=== PATIENT | male | born 1975 | race Caucasian/White ===

== ENCOUNTER 2017-05-15 08:51 | Emergency (ER) | payer OTHER ==
[~2017-05-15] VITALS: Ht 170.2 cm; Wt 90.7 kg
[2017-05-15 08:56] VITALS: Ht 170.2 cm; Wt 90.7 kg
[2017-05-15 10:48] VITALS: BP 128/78
== END 2017-05-15 10:49 | disposition home or self-care (01) ==
LOC: ED 08:51
DX: J11.1 Influenza due to unidentified influenza virus with other respiratory manifestations (principal)
CPT/HCPCS: Q0092